=== PATIENT | female | born 2005 | race Two or more races ===

== ENCOUNTER 2025-02-08 22:18 | Emergency (ER) | payer MEDICAID, SELFPAY ==
[2025-02-08 22:19] VITALS: BMI 40.3
[2025-02-08 22:54] VITALS: BP 128/84; PULSE 77; RESP 18; TEMP 37.2; O2SAT 99
--- NOTE | 2025-02-08 23:07 | EDNOTE_ITS ---
<Statement entered by Cele Downey MD - 02/10/25 18:57> As co-signing physician, I was present and available for consult prn. I concur with the plan and care as documented by the midlevel provider. Lower Extremity Injury RME/HPI General Chief Complaint: Ankle/Foot Injury Stated Complaint: L ANKLE INJURY R HAND INJURY Time Seen by Provider: 02/08/25 22:29 Source: patient Arrival date/time: 02/08/25 22:18 Mode of arrival: wheelchair Limitations: no limitations RME / HPI RME / HPI Narrative: Patient tells me she rolled her left ankle causing her to fall hurting her right hand. complaint: foot injury (Left foot) Onset (ago): hour(s) Type of Injury: inversion (Left ankle) Severity: moderate (Left foot right hand) Severity scale (1-10): 5 Relieving factors: nothing Exacerbating factors: weight bearing and movement ( Right hand) Context: fall Other symptoms: none Related Data Previous Rx's ?Medication ?Instructions ?Recorded ibuprofen 800 mg tablet 800 mg PO Q8H PRN pain #30 t abs 02/09/25 Allergies Allergy/AdvReac Type Severity Reaction Status Date / Time Sulfa (Sulfonamide Allergy Mild Hives Verified 02/08/25 22:24 Antibiotics) egg Allergy Unknown Verified 02/08/25 22:24 Review of Systems Constitutional Constitutional: Reports system reviewed and no additional complaints, except as documented Eyes Eyes: Reports system reviewed and no additional complaints, except as documented, Denies dry eyes, Denies exophthalmos and Reports floaters Cardiovascular Cardiovascular: Denies chest pain with activity and Denies claudication ED Exam Narrative Physical exam: The left ankle is tender to palpation at the area of the left lateral malleolus, there is edema present, there is decreased range of motion secondary to subjective pain, neurovascular is intact no apparent neurofocal deficit present. The right hand is tender to palpation at the snuffbox there is decreased range of motion secondary to subjective pain of the thumb, otherwise all digits of the right hand retain full range of motion. There is no apparent neurofocal deficits present. General Limitations: Present no limitations General appearance: Present alert and in no apparent distress Head Head exam: Present atraumatic Eye Eye exam: Present normal appearance and EOMI ENT ENT exam: Present normal exam, normal oropharynx and mucous membranes moist Neck Neck exam: Present normal inspection, full ROM and trachea midline Extremities Exam Extremities exam: Present normal inspection, full ROM, tenderness (As prescribed above), normal capillary refill and joint swelling (Left ankle) Back Exam Back exam: Present normal inspection and full ROM Neurological Exam Neurological exam: Present alert and oriented X3 Psychiatric Psychiatric exam: Present normal affect and normal mood Skin Skin exam: Present warm, dry, intact and normal color Course Course Course Narrative: Patient will have an x-ray of her left ankle and her left foot as well as a x- ray of her right hand. She will also have 1 [place]. Quality Measures none (N/A) Orders Category Date Time Status Splint / Immobilizer STAT Care 02/08/25 23:46 Completed XR ankle LT 2V Stat Exams 02/08/25 23:07 Completed XR foot comp LT min 3V Stat Exams 02/08/25 23:07 Completed XR hand comp RT min 3V Stat Exams 02/08/25 23:07 Completed HYDROcodone/APAP 10/325 [[place] 10/325] Med 02/08/25 23:27 Discontinued 1 tab PO X1 ONE Ordered Vital Signs Vital signs: Vital Signs Temperature 99 F 02/08/25 22:54 Pulse Rate 77 02/08/25 22:54 Respiratory Rate 18 02/08/25 22:54 Blood Pressure 128/84 02/08/25 22:54 Pulse Oximetry (%) 99 02/08/25 22:54 Oxygen Delivery Method Room Air 02/08/25 22:54 Pulse ox is 99% room air Extremity Injury, Lower MDM Narrative MDM Narrative:: Patient will have a posterior leg splint, I will send to the pharmacy of her choice ibuprofen, she is to follow-up with primary care physician for referral to Ortho as necessary. Patient is discharged in no apparent distress Patient data External records reviewed:: Other (specify) Clinical information provided by:: none (N/A) Social determinants that could affect healthcare access:: none (N/A) Patient has the following chronic illnesses:: N/A How is presenting disease/condition affected by chronic disease/condition?: no chronic disease (There is no chronic disease) Evaluation data The following diagnostics were reviewed and interpreted by me:: radiology exam(s) Lab and/or radiology exams considered but not ordered:: Radiology results are negative. Interpretation Summary: N/A Medications / Prescriptions Medications or Prescriptions considered but not ordered:: N/A Medication administrations:: Medication Administration History Discontinued Medications Hydrocodone Bitart/Acetaminophen (Hydrocodone/Apap 10/325 Tab) 1 tab PO X1 ONE Stop: 02/08/25 23:28 Last Admin: 02/09/25 00:04 Dose: 1 tab Documented By: BRIONNA N/A Consultations Consultation(s) initiated? (list below): No Diagnosis Extremity Injury, Lower Differential Diagnosis: ankle sprain and strain and other (Contusion of right hand) Most likely diagnosis given after review of the tests above:: Left ankle sprain, contusion right hand Admission Indicated Admission indicated?: not indicated Explain why admission is indicated or not indicated:: N/A Admission Request Was there a request for admission?: No Disposition Plan Disposition Plan: Discharge Discharge Attestation Discharge Attestation: The patient and all family members were given an opportunity to ask questions and understood the discharge instructions. Discharge instructions specifically effects, indications for sooner follow up or return to the emergency department, and the expected course of current diagnosis. Patient condition: Stable Discharge Plan Plan Patient Disposition: HOME (Self Care) Prescriptions/Referrals Prescriptions/Med Rec: New ibuprofen 800 mg tablet 800 mg PO Q8H PRN (Reason: pain) Qty: 30 0RF Referrals: Karan Jiang MD [Primary Care Provider] - In 1 week Problem List Clinical Impression: Ankle sprain and strain, Contusion of hand Patient/Caregiver Discharge Instructions Discharge Activity: activity as tolerated Print Language: Cook Islander Stand Alone Forms: Dorie Award Info., Work/School Release, Patient Portal Info Letter KEILY/ASHLI Supervising Physician KEILY/ASHLI Supervising Physician: Shayan
--- NOTE | 2025-02-08 23:07 | XR_ITS ---
Examination: Foot, left, 3 views Technique: AP, oblique, lateral views foot, 3 views Date and time of exam: February 08, 2025 1114 hours INDICATIONS: Twisting injury to the foot today, foot pain. FINDINGS: No acute fracture No dislocation No foreign body IMPRESSION: No acute fracture
--- NOTE | 2025-02-08 23:07 | XR_ITS ---
Examination: Hand, right 3 views Technique: Hand AP, oblique, lateral 3 views Date and time of exam: February 08, 2025 at 1114 hours INDICATIONS: Injury to the hand today, hand pain FINDINGS: No acute fracture. No dislocation. No foreign body IMPRESSION: No acute fracture
--- NOTE | 2025-02-08 23:07 | XR_ITS ---
Examination: Left ankle 2 views TECHNIQUE: AP lateral left ankle 2 views INDICATIONS: Twisting injury to the ankle today, ankle pain. Date and time: 2024 11:20 PM FINDINGS: Lateral malleolar soft tissue swelling No ankle fracture or dislocation IMPRESSION: No ankle fracture or dislocation
[2025-02-09] MEDS: HYDROcodone/APAP 10/325 TAB PO (00:04)
== END 2025-02-09 00:20 | disposition home or self-care (01) ==
PROVIDERS: Emergency Provider Emergency Medicine; PCP Family Medicine
DX: S93.402A Sprain of unspecified ligament of left ankle, initial encounter (principal); S96.912A Strain of unspecified muscle and tendon at ankle and foot level, left foot, initial encounter; S60.221A Contusion of right hand, initial encounter; M79.672 Pain in left foot; X50.1XXA Overexertion from prolonged static or awkward postures, initial encounter
CPT/HCPCS: 73130; 73600; 73630; 99283; A9270

== ENCOUNTER 2025-04-11 20:24 | Emergency (ER) | payer MEDICAID, SELFPAY ==
[2025-04-11 20:25] VITALS: BMI 38.7
[2025-04-11 20:39] VITALS: BP 138/91; PULSE 94; RESP 19; TEMP 37.2; O2SAT 98
--- NOTE | 2025-04-11 20:45 | PD.EDEAR ---
ED Ear RME/HPI General Chief complaint: Ear Stated complaint: LEFT EARACHE Time Seen by Provider: 04/11/25 20:29 Arrival date/time: 04/11/25 20:24 This is a case of 19-year-old female with no medical history came in in the emergency room due to left ear pain for 2 days with discharge no decreased hearing no tinnitus no dizziness no respiratory symptoms persistence of the symptoms this patient decided to sought consult here in the emergency room Limitations: no limitations Related Data Previous Rx's ?Medication ?Instructions ?Recorded ibuprofen 800 mg tablet 800 mg PO Q8H PRN pain #30 tabs 02/09/25 amoxicillin 875 mg-potassium 1 tab PO BID 10 days #20 tabs 04/11/25 clavulanate 125 mg tablet ibuprofen 800 mg tablet 800 mg PO Q8H PRN pain #20 tabs 04/11/25 ofloxacin 0.3 % ear drops 5 drp otic (ear) BID 7 days #10 mL 04/11/25 Allergies Allergy/AdvReac Type Severity Reaction Status Date / Time Sulfa (Sulfonamide Allergy Mild Hives Verified 02/08/25 22:24 Antibiotics) egg Allergy Unknown Verified 02/08/25 22:24 Review of Systems Constitutional Constitutional: Reports system reviewed and no additional complaints, except as documented and Reports as per HPI ENT Ears, Nose, Mouth, and Throat: Reports ear discharge and Reports otalgia Cardiovascular Cardiovascular: Reports system reviewed and no additional complaints, except as documented and Reports as per HPI Respiratory Respiratory: Reports system reviewed and no additional complaints, except as documented and Reports as per HPI Gastrointestinal Gastrointestinal: Reports system reviewed and no additional complaints, except as documented and Reports as per HPI Musculoskeletal Musculoskeletal: Reports system reviewed and no additional complaints, except as documented and Reports as per HPI Neurologic Neurologic: Reports system reviewed and no additional complaints, except as documented Past Medical History Past Medical History HEMATOLOGIC: Positive Anemia Social History SMOKING STATUS: Never smoker SUBSTANCE USE: does not use ED Exam General Limitations: Present no limitations General appearance: Present alert, in no apparent distress and other (Physical examination patient is awake alert oriented not in distress nontoxic looking well-hydrated well-nourished) Head Head exam: Present atraumatic, normocephalic and normal inspection Eye Eye exam: Present normal appearance, PERRL and EOMI ENT ENT exam: Present normal exam, normal oropharynx, mucous membranes moist and other (Noted bilateral ear canal red moderate tenderness yellowish discharge no swelling no foreign body no impacted cerumen no mastoid tenderness bilaterally tympanic membrane noted to be red bulging retracted but not perforated the rest of the HEENT exam is normal and unremarkable) Neck Neck exam: Present normal inspection, full ROM and trachea midline; Absent tenderness, meningismus or lymphadenopathy Chest Chest inspection: Present normal inspection and symmetric chest wall rise; Absent tenderness Respiratory Respiratory exam: Present normal lung sounds bilaterally; Absent respiratory distress, wheezes, stridor, accessory muscle use or prolonged expiratory phase Cardiovascular Cardiovascular exam: Present regular rate, normal rhythm and normal heart sounds; Absent bradycardia, tachycardia, irregular rhythm, systolic murmur, diastolic murmur or clicks Abdominal Exam Abdominal exam: Present soft and normal bowel sounds Extremities Exam Extremities exam: Present normal inspection and full ROM Back Exam Back exam: Present normal inspection and full ROM Neurological Exam Neurological exam: Present alert, oriented X3, CN II-XII intact and normal gait; Absent motor sensory deficit Psychiatric Psychiatric exam: Present normal affect and normal mood Skin Skin exam: Present warm, dry, intact and normal color Course Quality Measures none Orders Category Date Time Status Dexamethasone Inj [Decadron Inj] Med 04/11/25 20:42 Discontinued 10 mg PO X1 ONE HYDROcodone*/APAP 5/325 [[place] 5/325] Med 04/11/25 20:42 Discontinued 1 tab PO X1 ONE cefTRIAXone [Rocephin] 1,000 mg Med 04/11/25 20:42 Discontinued Lidocaine 1% 20 ml [Xylocaine 1% 20 ML] 2.1 ml IM X1 Vital Signs Vital signs: Vital Signs Temperature 98.9 F 04/11/25 20:39 Pulse Rate 94 04/11/25 20:39 Respiratory Rate 19 04/11/25 20:39 Blood Pressure 138/91 H 04/11/25 20:39 Pulse Oximetry (%) 98 04/11/25 20:39 Oxygen Delivery Method Room Air 04/11/25 20:39 Oxygen saturation is 98% in room air Ear MDM Narrative MDM Narrative:: This is a case of 19-year-old female with no medical history came in in the emergency room due to left ear pain for 2 days with discharge no decreased hearing no tinnitus no dizziness no respiratory symptoms persistence of the symptoms this patient decided to sought consult here in the emergency room physical examination patient is awake alert oriented not in distress nontoxic looking well-hydrated well-nourished both ear canal noted to be red mild to moderate tenderness but no swelling no impacted cerumen no foreign body no mastoid tenderness bilaterally patient tympanic membrane both retracted bulging red but not perforated the rest of the physical examination and neurological exam is normal and unremarkable based on my physical examination and history patient symptoms suggestive of otitis media patient was given ceftriaxone IM for possible acute suppurative otitis media patient was also discharged with Augmentin ibuprofen and ofloxacin otic drops after giving [place] patient condition markedly improved patient will follow-up with PCP in 2 days for evaluation and return precaution to the ER for worsening symptoms advised Patient was discharged with comfortable condition walking with stable gait. Patient verbalized no further complains explained diagnosis and answered patient question. Patient is comfortable with the proposed management plan including the need to follow up with his/her primary care physician and any specialist if applicable Discussed patient for any urgent condition or worsening sx, He/She needed to go to emergency room immediately or call 911. Patient acknowledge the responsibility to follow up as instructed and to monitor her/his symptoms. For any persistence of the symptoms for more than 3-5 days return precaution advised. Discussed the result of the test and was given printed discharge instruction Patient data External records reviewed:: [facility] previous records Clinical information provided by:: patient Social determinants that could affect healthcare access:: none Patient has the following chronic illnesses:: None How is presenting disease/condition affected by chronic disease/condition?: no chronic disease Evaluation data The following diagnostics were reviewed and interpreted by me:: other (specify) (None) Lab and/or radiology exams considered but not ordered:: None Interpretation Summary: None Medications / Prescriptions Medications or Prescriptions considered but not ordered:: Given Medication administrations:: Medication Administration History Discontinued Medications Hydrocodone Bitart/Acetaminophen (Hydrocodone/Apap 5/325 Tablet) 1 tab PO X1 ONE Stop: 04/11/25 20:43 Ceftriaxone Sodium 1,000 mg/ (Lidocaine HCl 2.1 ml) 0 mg IM X1 ONE Stop: 04/11/25 20:43 Dexamethasone Sodium Phosphate (Dexamethasone Sod Phos Inj 10 Mg/Ml Vial) 10 mg PO X1 ONE Stop: 04/11/25 20:43 Given Consultations Consultation(s) initiated? (list below): No Diagnosis Ear Differential Diagnosis: otitis externa, otitis media, ruptured TM and cerumen impaction Most likely diagnosis given after review of the tests above:: Otitis media Admission Indicated Admission indicated?: not indicated Explain why admission is indicated or not indicated:: Not indicated Admission Request Was there a request for admission?: No Admission Attestation Admission request attestation: Not indicated Disposition Plan Disposition Plan: Discharge Discharge Attestation Discharge Attestation: The patient and all family members were given an opportunity to ask questions and understood the discharge instructions. Discharge instructions specifically effects, indications for sooner follow up or return to the emergency department, and the expected course of current diagnosis. Patient condition: Stable Discharge Plan Plan Patient Disposition: HOME (Self Care) Patient condition on transfer: Stable Prescriptions/Referrals Prescriptions/Med Rec: New amoxicillin-pot clavulanate 875-125 mg tablet 1 tab PO BID 10 Days Qty: 20 0RF ibuprofen 800 mg tablet 800 mg PO Q8H PRN (Reason: pain) Qty: 20 0RF ofloxacin 0.3 % drops 5 drp otic (ear) BID 7 Days Qty: 10 0RF Rx Instructions: both ears No Action ibuprofen 800 mg tablet 800 mg PO Q8H PRN (Reason: pain) Qty: 30 0RF Referrals: Temporary Provider,ED [Primary Care Provider] - In 1 week Problem List Clinical Impression: Otitis media Patient/Caregiver Discharge Instructions Education Materials: ED Otitis Media Antibiotic ... Additional Instructions: Follow-up with your primary care physician in 2 days for reevaluation worsening symptoms or any emergent concern call 911 or go to the nearest emergency room take your medication as directed finish the course of antibiotic no Q-tips no cotton balls prevent water to enter both ears is advised Print Language: Occitan Stand Alone Forms: Dorie Award Info., Patient Portal Info Letter PA/WORK STATION SUPPORT SPECIALIST Supervising Physician PA/ASHLI Supervising Physician: Dr. Monsivais
[2025-04-11] MEDS: HYDROcodone/APAP 5/325 TABLET 1 TAB PO (20:50)
[2025-04-11] MEDS: DEXAMETHASONE SOD PHOS INJ 10 MG/ML VIAL PO (20:50)
[2025-04-11] MEDS: cefTRIAXone 1,000 MG, LIDOCAINE 1% 20 ML 2.1 ML IM (20:51)
== END 2025-04-11 20:52 | disposition home or self-care (01) ==
LOC: SERX 20:55
PROVIDERS: Emergency Provider Emergency Medicine
DX: H66.92 Otitis media, unspecified, left ear (principal)
CPT/HCPCS: 96372; 99283; J0696; J1100; J3490; A9270

== ENCOUNTER 2025-05-31 05:27 | Emergency (ER) | payer MEDICAID, SELFPAY ==
[2025-05-31 05:28] VITALS: BP 152/95; PULSE 88; RESP 17; TEMP 37.2; O2SAT 97; BMI 40.3
--- NOTE | 2025-05-31 05:45 | EDRME_ITS ---
Rapid Medical Screening Exam [facility] Arrival date/time: 05/31/25 05:27 19F with no significant PMH presents to ED with several hours of epigastric pain and N/V. Patient denies dysuria and diarrhea. Chief Complaint: Abdominal Pain Vital signs: Vital Signs Temperature 98.9 F 05/31/25 05:28 Pulse Rate 88 05/31/25 05:28 Respiratory Rate 17 05/31/25 05:28 Blood Pressure 152/95 H 05/31/25 05:28 Pulse Oximetry (%) 97 05/31/25 05:28 Oxygen Delivery Method Room Air 05/31/25 05:28
[2025-05-31] MEDS: ONDANSETRON ODT 4 MG TABRAP PO (05:56)
[2025-05-31] MEDS: FAMOTIDINE 20 MG TABLET 40 MG PO (05:56)
[2025-05-31 06:36] LABS: Basophils # (Auto) 0.0 Thou/mm3 (0.0-0.2); Basophils % (Auto) 1 % (0-2.5); Eosinophils # (Auto) 0.2 Thou/mm3 (0.0-0.5); Eosinophils % (Auto) 2 % (0-10); Hematocrit 40.2 % (36.0-46.0); Hemoglobin 12.9 g/dL (12.0-16.0); Immature Granulocytes Auto 0.02 Thou/mm3 (0.00-0.00); Lymphocytes # (Auto) 2.3 Thou/mm3 (1.0-4.8); Lymphocytes % (Auto) 26 % (10-50); Mean Corpuscular HGB Conc 32.1 g/dl (31.0-37.0); Mean Corpuscular Hemoglobin 26.5 pg (25.0-35.0); Mean Corpuscular Volume 83 fL (80-100); Monocytes # (Auto) 0.7 Thou/mm3 (0.0-0.8); Monocytes % (Auto) 8 % (0-12); Neutrophils # (Auto) 5.6 Thou/mm3 (1.8-7.7); Neutrophils % (Auto) 64 % (37-80); Nucleated Red Blood Cell # 0.00 Thou/mm3 (0.00-0.00); Nucleated Red Blood Cell % 0 /100 WBC (0); Platelet Count 326 Thou/mm3 (140-440); RDW Standard Deviation 42.1 fL (36.4-46.3); Red Blood Count 4.87 Miln/mm3 (4.00-5.20); White Blood Count 8.8 Thou/mm3 (3.6-11.0)
[2025-05-31 06:55] LABS: HCG,Qualitative Serum Negative
[2025-05-31 07:01] LABS: Alanine Aminotransferase 48 U/L (10-49); Albumin, Serum 4.3 gm/dL (3.5-5.0); Albumin/Globulin Ratio 1.5 (1.2-2.2); Alkaline Phosphatase 61 U/L (46-116); Anion Gap 8 (7-16); Aspartate Amino Transferase 18 U/L (0-34); BUN/Creatinine Ratio 10 Ratio (12-20); Bilirubin,Total 0.2 mg/dL (0.3-1.2); Blood Urea Nitrogen 9 mg/dL (9-23); Calcium 9.2 mg/dL (8.3-10.6); Calcium (Corrected) 9.2 mg/dL (8.5-10.1); Carbon Dioxide 27.7 mMol/L (20.0-31.0); Chloride 106 mMol/L (98-107); Creatinine (Component) 0.9 mg/dL (0.6-1.3); Estimated Creatinine Clearance 126.3 mL/min (>60); Globulin 2.9 gm/dL (2.3-3.5); Glucose 131 mg/dL (74-106); Lipase 40 U/L (12-53); Osmolality,Calculated 283 (275-295); Potassium 4.3 mMol/L (3.4-5.1); Sodium 142 mMol/L (136-145); Total Protein 7.2 gm/dL (5.7-8.2); eGFR > 60 See Note
--- NOTE | 2025-05-31 07:04 | PD.EDABDPN ---
ED Abdominal Pain RME/HPI General Chief Complaint: Abdominal Pain Stated complaint: UPPER ABD PAIN Time seen by provider: 05/31/25 07:03 Arrival date/time: 05/31/25 05:27 19F with no significant PMH presents to ED with several hours of epigastric pain and N/V. Patient denies dysuria and diarrhea patient reports no lower abdominal pain Limitations: no limitations RME / HPI RME / HPI narrative: 05/31/25 05:27 19F with no significant PMH presents to ED with several hours of epigastric pain and N/V. Patient denies dysuria and diarrhea. Related Data Previous Rx's ?Medication ?Instructions ?Recorded ibuprofen 800 mg tablet 800 mg PO Q8H PRN pain #30 tabs 02/09/25 ibuprofen 800 mg tablet 800 mg PO Q8H PRN pain #20 tabs 04/11/25 ibuprofen 800 mg tablet 800 mg PO TID PRN pain #30 tabs 05/31/25 metoclopramide HCl 10 mg tablet 10 mg PO Q6H PRN nausea and 05/31/25 (Reglan) vomiting #30 tabs Allergies Allergy/AdvReac Type Severity Reaction Status Date / Time Sulfa (Sulfonamide Allergy Mild Hives Verified 05/31/25 05:30 Antibiotics) egg Allergy Unknown Verified 05/31/25 05:30 Review of Systems Review of Systems Systems Reviewed: All systems reviewed, normal except as documented Constitutional Constitutional: Reports system reviewed and no additional complaints, except as documented, Denies fever(s) and Denies headache(s) Eyes Eyes: Reports system reviewed and no additional complaints, except as documented and Denies blurry vision ENT Ears, Nose, Mouth, and Throat: Reports system reviewed and no additional complaints, except as documented, Denies headache(s), Denies nasal congestion and Denies nasal discharge Cardiovascular Cardiovascular: Reports system reviewed and no additional complaints, except as documented, Denies chest pain and Denies dyspnea Respiratory Respiratory: Reports system reviewed and no additional complaints, except as documented, Denies chest congestion, Denies cough and Denies dyspnea Gastrointestinal Gastrointestinal: Reports system reviewed and no additional complaints, except as documented and Reports abdominal pain Integumentary/Breasts Skin/Breast: Reports system reviewed and no additional complaints, except as documented and Denies rash Neurologic Neurologic: Reports system reviewed and no additional complaints, except as documented, Reports as per HPI and Denies headache(s) Past Medical History Past Medical History HEMATOLOGIC: Positive Anemia Social History SMOKING STATUS: Never smoker SUBSTANCE USE: does not use ED Exam General Limitations: Present no limitations General appearance: Present alert and in no apparent distress Head Head exam: Present atraumatic Eye Eye exam: Present normal appearance, PERRL and EOMI ENT ENT exam: Present normal exam, normal oropharynx and mucous membranes moist Neck Neck exam: Present normal inspection, full ROM and trachea midline Chest Chest inspection: Present normal inspection and symmetric chest wall rise Respiratory Respiratory exam: Present normal lung sounds bilaterally Cardiovascular Cardiovascular exam: Present regular rate, normal rhythm and normal heart sounds Abdominal Exam Abdominal exam: Present soft, tenderness and normal bowel sounds; Absent distention, guarding, rebound, rigidity, Carlos's sign or tenderness at McBurney's Point Abdominal tenderness: Present epigastrium; Absent RUQ or RLQ Extremities Exam Extremities exam: Present normal inspection and full ROM Back Exam Back exam: Present normal inspection and full ROM Neurological Exam Neurological exam: Present alert, oriented X3 and CN II-XII intact Psychiatric Psychiatric exam: Present normal affect and normal mood Skin Skin exam: Present warm, dry, intact and normal color Course Quality Measures none Orders Category Date Time Status US gall bladder Stat Exams 05/31/25 07:20 Completed CBC Stat Lab 05/31/25 06:23 Completed CMP [Comprehensive Metabolic Panel] Stat Lab 05/31/25 06:23 Completed HCG,Qualitative Serum Stat Lab 05/31/25 06:23 Completed Lipase Stat Lab 05/31/25 06:23 Completed Acetaminophen Tab [Tylenol ES Tab] Med 05/31/25 07:19 Discontinued 1,000 mg PO X1 ONE Famotidine [Pepcid] Med 05/31/25 05:44 Discontinued 40 mg PO X1 ONE Metoclopramide [Reglan] Med 05/31/25 07:19 Discontinued 10 mg PO X1 ONE Ondansetron Odt [Zofran Odt] Med 05/31/25 05:44 Discontinued 4 mg PO X1 ONE Vital Signs Vital signs: Vital Signs Temperature 98.9 F 05/31/25 05:28 Pulse Rate 88 05/31/25 05:28 Respiratory Rate 17 05/31/25 05:28 Blood Pressure 152/95 H 05/31/25 05:28 Pulse Oximetry (%) 97 05/31/25 05:28 Oxygen Delivery Method Room Air 05/31/25 05:28 O2 saturation 97% room air with normal limits Abdominal Pain MDM MDM Narrative MDM Narrative:: 19F with no significant PMH presents to ED with several hours of epigastric pain and N/V. Patient denies dysuria and diarrhea patient reports no lower abdominal pain On exam patient well-appearing patient does not appear ill or toxic no acute distress Lab work and imaging obtained Lab work unremarkable imaging consistent with cholelithiasis Patient has no elevated liver enzymes negative cholecystitis Patient struck to follow-up PCP soon as possible for further evaluation Patient data External records reviewed:: [facility] previous records Clinical information provided by:: patient Social determinants that could affect healthcare access:: none Patient has the following chronic illnesses:: none How is presenting disease/condition affected by chronic disease/condition?: no chronic disease Evaluation data The following diagnostics were reviewed and interpreted by me:: lab results and radiology exam(s) Lab and/or radiology exams considered but not ordered:: labs and rad obtained Interpretation Summary: reviewed by me Medications / Prescriptions Medications or Prescriptions considered but not ordered:: Given Medication administrations:: Medication Administration History Discontinued Medications Acetaminophen (Acetaminophen 500 Mg Tablet) 1,000 mg PO X1 ONE Stop: 05/31/25 07:20 Last Admin: 05/31/25 07:27 Dose: 1,000 mg Documented By: CLEO Famotidine (Famotidine 20 Mg Tablet) 40 mg PO X1 ONE Stop: 05/31/25 05:45 Last Admin: 05/31/25 05:56 Dose: 40 mg Documented By: BRIONNA Metoclopramide HCl (Metoclopramide 5 Mg Tablet) 10 mg PO X1 ONE Stop: 05/31/25 07:20 Last Admin: 05/31/25 07:27 Dose: 10 mg Documented By: CLEO Ondansetron HCl (Ondansetron Odt 4 Mg Tabrap) 4 mg PO X1 ONE; Protocol Stop: 05/31/25 05:45 Last Admin: 05/31/25 05:56 Dose: 4 mg Documented By: BRIONNA Given Consultations Consultation(s) initiated? (list below): No Diagnosis Differential diagnosis abdominal pain: abdominal pain, acute appendicitis and pancreatitis Most likely diagnosis given after review of the tests above:: Abdominal pain, cholelithiasis Admission Indicated Admission indicated?: not indicated Admission Request Was there a request for admission?: No Disposition Plan Disposition Plan: Discharge Discharge Attestation Discharge Attestation: The patient and all family members were given an opportunity to ask questions and understood the discharge instructions. Discharge instructions specifically effects, indications for sooner follow up or return to the emergency department, and the expected course of current diagnosis. Patient condition: Stable Discharge Plan Plan Patient Disposition: HOME (Self Care) Discharge Disposition comment: Stable Prescriptions/Referrals Prescriptions/Med Rec: New ibuprofen 800 mg tablet 800 mg PO TID PRN (Reason: pain) Qty: 30 0RF metoclopramide HCl [Reglan] 10 mg tablet 10 mg PO Q6H PRN (Reason: nausea and vomiting) Qty: 30 0RF No Action ibuprofen 800 mg tablet 800 mg PO Q8H PRN (Reason: pain) Qty: 20 0RF ibuprofen 800 mg tablet 800 mg PO Q8H PRN (Reason: pain) Qty: 30 0RF Referrals: No Primary/Family,Physician [Primary Care Provider] - In 1 week Problem List Clinical Impression: Cholelithiasis Patient/Caregiver Discharge Instructions Education Materials: ED Gallstones with Biliary Colic Additional Instructions: Please follow up with your primary care doctor in the next 24-48hrs for any worsening symptoms return here immediately It is extremely important you follow-up with a PCP in order get further evaluation by general surgeon Print Language: Eritrean Stand Alone Forms: Dorie Award Info., Patient Portal Info Letter PA/ASHLI Supervising Physician KEILY/ASHLI Supervising Physician: Dr. Azevedo
[2025-05-31 07:18] VITALS: BP 137/87; PULSE 62; RESP 18; TEMP 37; O2SAT 100
--- NOTE | 2025-05-31 07:20 | XR_ITS ---
Examination: Abdomen sonogram, Limited Date and time of exam: May 31, 2025, 0759 hours INDICATIONS: Epigastric pain today Technique: Real-time siddiqui scale transabdominal sonographic images of the upper abdomen obtained. Findings: Cholelithiasis, normal gallbladder wall 0.2 cm Normal common bile duct 0.4 cm Pancreatic head 3.2 cm Liver 17.5 cm fatty infiltration Normal hepatopetal portal venous flow Patent IVC. IMPRESSION: Cholelithiasis, negative for cholecystitis
[2025-05-31] MEDS: METOCLOPRAMIDE 5 MG TABLET 10 MG PO (07:27)
[2025-05-31] MEDS: ACETAMINOPHEN 500 MG TABLET 1000 MG PO (07:27)
== END 2025-05-31 09:47 | disposition home or self-care (01) ==
PROVIDERS: Nurse Practitioner Primary Care; Physician Assistant; Emergency Provider Emergency Medicine
DX: K80.70 Calculus of gallbladder and bile duct without cholecystitis without obstruction (principal)
CPT/HCPCS: 36415; 76705; 80053; 83690; 84703; 85025; 99283; Q0162; A9270